=== PATIENT | female | born 1995 | race Caucasian/White ===

== ENCOUNTER 2022-02-13 00:55 | Emergency (ER) | payer MEDICAID ==
[~2022-02-13] VITALS: Ht 154.9 cm; Wt 63.5 kg
--- NOTE | 2022-02-13 01:26 | NUR ---
[employer] ON 5150 HOLD FOR DANGER TO SELF. PT DENIES S/I AT TRIAGE. PATIENT ALERT AND ORIENTED X3. AMBULATORY WITH NON LABORED BREATHING. IN BED 09 WITH [employer] AT BEDSIDE AWAITING MD SIMENTAL.
[2022-02-13 01:51] LABS: BASOPHILS % (AUTO) 0.3 % (0.0-2.0); EOSINOPHILS % (AUTO) 0.6 % (0.0-6.0); HEMATOCRIT 40 % (33-45); HEMOGLOBIN 13.3 g/dL (11.5-14.8); LYMPHOCYTES # (AUTO) 1.8 K/uL (0.8-4.8); LYMPHOCYTES % (AUTO) 18.1 % (20.0-44.0); MEAN CORPUSCULAR HGB CONC 33 g/dl (31.0-36.0); MEAN CORPUSCULAR VOLUME 81 fL (82-100); MONOCYTES # (AUTO) 0.5 K/uL (0.1-1.30); MONOCYTES % (AUTO) 4.7 % (2.0-12.0); NEUTROPHILS # (AUTO) 7.6 K/uL (1.8-8.9); NEUTROPHILS % (AUTO) 76.3 % (43.0-81.0); PLATELET COUNT (AUTO) 305 K/uL (150-450); RED BLOOD CELL COUNT(AUTO) 4.96 MIL/uL (4.0-5.2)
[2022-02-13 02:33] LABS: CALCIUM, SERUM 8.7 mg/dL (8.5-10.1); CREATININE 0.7 mg/dL (0.6-1.3); POTASSIUM 3.3 mmol/L (3.5-5.1)
[2022-02-13 02:38] LABS: ALBUMIN 3.8 g/dL (3.4-5.0); BILIRUBIN,DIRECT 0.1 mg/dL (0.0-0.2); BILIRUBIN,TOTAL 0.3 mg/dL (0.2-1.0); TOTAL PROTEIN, SERUM 7.5 g/dL (6.4-8.2)
[2022-02-13 02:59] LABS: BILIRUBIN,URINE NEGATIVE (NEGATIVE); COLOR,URINE YELLOW (YELLOW); LEUKOCYTE ESTERASE ,URINE NEGATIVE (NEGATIVE); NITRITE, URINE NEGATIVE (NEGATIVE); PROTEIN,URINE NEGATIVE (NEGATIVE); UGLUCOSE NEGATIVE (NEGATIVE); UROBILINOGEN,URINE 0.2 EU/dL (0.2)
--- NOTE | 2022-02-13 03:55 | NUR ---
Patient discharged to home in stable condition. Written and verbal after care instructions given. Patient verbalizes understanding of instruction. PT ambulatory with a steady gait
[2022-02-13 03:57] VITALS: BP 124/70
== END 2022-02-13 03:58 | disposition home or self-care (01) ==
LOC: ER 01:04
DX: R45.851 Suicidal ideations (principal); F10.129 Alcohol abuse with intoxication, unspecified; Y90.6 Blood alcohol level of 120-199 mg/100 ml; Z20.822 Contact with and (suspected) exposure to COVID-19; R74.01 Elevation of levels of liver transaminase levels
CPT/HCPCS: 36415; 80048; 80076; 80143; 80307; 80320; 81003; 85025; 87426; 99285; C9803; G0480

== ENCOUNTER 2022-04-12 23:20 | Emergency (ER) | payer MEDICAID, OTHER ==
[~2022-04-12] VITALS: Ht 154.9 cm; Wt 63.5 kg
[2022-04-12 23:51] VITALS: BP 107/61
[2022-04-13] MEDS ORDERED: ONDANSETRON 4 MG TAB.RAPDIS PO ONE
[2022-04-13] MEDS ORDERED: ONDANSETRON 4 MG TAB.RAPDIS ONE (00:01)
--- NOTE | 2022-04-13 00:04 | NUR ---
COVID SWAB DONE AND SENT TO LAB
--- NOTE | 2022-04-13 01:17 | NUR ---
PT IS MEDICALLY CLEARED FOR BOOKING AND RELEASED IN STABLE CONDITION TO [employer] OFFICERS. PT IS IN STABLE CONDITION. PT IS AMBULATORY ON STEADY GAIT.
== END 2022-04-13 01:18 ==
LOC: ER 23:23
DX: R11.0 Nausea (principal); Z20.822 Contact with and (suspected) exposure to COVID-19
CPT/HCPCS: 87426; 99283; C9803; Q0162